=== PATIENT | male | born 1950 | race Caucasian/White ===

== ENCOUNTER 2024-11-12 07:42 | Outpatient (CLI) | payer MEDICARE, BC, SELFPAY ==
--- NOTE | 2024-11-12 11:32 | P.ANES_ITS ---
Anesthesia Charges Start Date/Time Anesthesia Start Date: 11/12/24 Anesthesia Start Time: 09:06 Stop Date/Time Anesthesia Stop Date: 11/12/24 Anesthesia Stop Time: 09:42 Summary Extremes of Age - Over 70 or under 1: MDA Coding CPT Codes CPT Codes: ANES LWR INTST NDSC NOS - [id number] ([id number]) QK - PARK [employer]ICE 2-4 CNCRNT ANES PROC, QX - CURED MEAT PACKING SUPERVISOR SVC W/ MD MED DIRECTION, P4 - PT W/SEV SYS DIS THREAT LIFE Additional Codes: Summary - Extremes of Age - Over 70 or under 1: MDA ([id number])
--- NOTE | 2024-11-12 12:30 | P.ANES_ITS ---
Anesthesia Charges Start Date/Time Anesthesia Start Date: 11/12/24 Anesthesia Start Time: 09:06 Stop Date/Time Anesthesia Stop Date: 11/12/24 Anesthesia Stop Time: 09:42 Coding CPT Codes CPT Codes: JEAN MARIE LWR INTST NDSC NOS - [id number] ([id number]) P4 - PT W/SEV SYS DIS THREAT LIFE, QK - FIRER TUNNEL KILN 2-4 CNCRNT ANES PROC, QX - IMPROVEMENT DIRECTOR SVC W/ MD MED DIRECTION
--- NOTE | 2024-11-12 12:30 | W.ANESCHARGE ---
Anesthesia Charges Start Date/Time Anesthesia Start Date: 11/12/24 Anesthesia Start Time: 09:06 Stop Date/Time Anesthesia Stop Date: 11/12/24 Anesthesia Stop Time: 09:42 Coding CPT Codes CPT Codes: JEAN MARIE LWR INTST NDSC NOS - [id number] ([id number]) P4 - PT W/SEV SYS DIS THREAT LIFE, QK - NUCLEAR UNIT OPERATOR 2-4 CNCRNT ANES PROC, QX - HUMANITIES INSTRUCTOR SVC W/ MD MED DIRECTION
== END 2024-11-12 07:43 | disposition home or self-care (01) ==
PROVIDERS: PCP Student in an Organized Health Care Education/Training Program; Visit Provider Surgery
DX: Z12.11 Encounter for screening for malignant neoplasm of colon (principal); D12.0 Benign neoplasm of cecum; D12.2 Benign neoplasm of ascending colon; D12.3 Benign neoplasm of transverse colon; K57.30 Diverticulosis of large intestine without perforation or abscess without bleeding; Z86.0100 Personal history of colon polyps, unspecified
CPT/HCPCS: 00811; 45385; 88305; 99100; J2704